=== PATIENT | female | born 1975 | race Caucasian/White ===

== ENCOUNTER → 2017-02-28 | Outpatient (CLI) | payer OTHER ==
[~2017-02-28] MED LIST: MELOXICAM15 MG PO; METOPROLOL SUCC25 MG PO; MONTELUKAST SOD10 MG PO; OMEPRAZOLE40 M1 PO; SPIRIVA RESPIMAT4 G1 INH; ZESTORETIC 20-1 EAC2 PO
--- NOTE | ~2017-02-28 | CR63 ---
[facility] A Service of [facility] & [facility] RADIOLOGY TEXT RESULTS PATIENT: CARTER MARTINEZ LOCATION: [facility] : 73 UNIT #: [id number] AGE: [address]: Juan Jose De Dios SEX: F ORDER DR: [id number] [facility] [address] [place], [place] [address] [id number] O MR#: [id number] Acc #: [id number] NAME: CARTER MARTINEZ : 1975 SEX: F STUDY DATE/TIME: 02/28/2017 8:07 UNIT: [facility] ROOM: STUDY DESCRIPTION: CR Chest 2 View Attending Physician: Juan Jose De Dios M.D. Referring Physician: Juan Jose De Dios M.D. Ordering Physician: Juan Jose De Dios M.D. Primary Care Physician: Bette Connor A.P.R.N. MEDICAL IMAGING REPORT This report is preliminary unless electronic signature is present EXAM Chest 02/28/2017. HISTORY 42-year-old female patient preop clearance for laparoscopic adjustable gastric band placement with possible paraesophageal hernia repair. Morbid obesity. Comparison chest 07/31/2008. FINDINGS PA and lateral chest views show normal cardiac size and configuration. Hilar structures and mediastinal contours are preserved. Bilateral lungs are expanded and clear. Large body habitus noted. IMPRESSION Negative chest. Large body habitus. Dictated by... Servando Andino M.D. THIS IS AN ELECTRONICALLY VERIFIED REPORT Servando Andino M.D. at 02/28/2017 1:33 PM Jay TD: 02/28/2017 12:44 JOB #: [id number] MEDICAL IMAGING REPORT Page 1 of 1 COPY
--- NOTE | ~2017-02-28 | EKG ---
PATIENT: CARTER MARTINEZ UNIT #: [id number] Ventricular Rate: 81 BPM Atrial Rate: 81 BPM P-R Interval: 184 ms QRS Duration: 72 ms Q-T Interval: 368 ms QTC Calculation(Bezet): 427 ms P [place]: 74 degrees Calculated R [place]: 45 degrees Calculated T [place]: 41 degrees Diagnosis Line: Normal sinus rhythm Diagnosis Line: Low voltage QRS Diagnosis Line: Nonspecific ST abnormality Diagnosis Line: Abnormal ECG Diagnosis Line: No previous ECGs available Diagnosis Line: Confirmed by FABIOLA HOLLINS MD ([id number]) on Diagnosis Line: 02/28/2017 2:46:52 PM INTERPRETING MD: GUNJAN FAYE
--- NOTE | ~2017-02-28 | CR97 ---
[facility] A Service of [facility] / [facility] RADIOLOGY TEXT RESULTS PATIENT: CARTER MARTINEZ LOCATION: [facility] : 73 UNIT #: [id number] AGE: [address]: Juan Jose De Dios SEX: F ORDER DR: [id number] [place], [place] [address] [id number] O MR#: [id number] Acc #: [id number] NAME: CARTER MARTINEZ : 1975 SEX: F STUDY DATE/TIME: 02/28/2017 9:02 UNIT: [facility] ROOM: STUDY DESCRIPTION: CR Esophagram Attending Physician: Juan Jose De Dios M.D. Referring Physician: Juan Jose De Dios M.D. Ordering Physician: Juan Jose De Dios M.D. Primary Care Physician: Bette Connor A.P.R.N. MEDICAL IMAGING REPORT This report is preliminary unless electronic signature is present EXAM Single-contrast barium esophagram. INDICATION Preoperative examination prior to laparoscopic gastric band surgery. Patient does have a history of reflux and shortness of breath with activity. TECHNIQUE Patient was administered thin barium and multiple fluoroscopic images were obtained. FINDINGS Thoracic esophagus is of normal caliber. No evidence of stricture or mass lesion. Esophageal motility is within normal limits. No reflux was identified. Patient is noted to have a small hiatal hernia. Total fluoroscopy time was 0.3 minutes and a total of 19 fluoroscopic images were obtained. IMPRESSION Small hiatal hernia, otherwise unremarkable exam. Dictated by... Karina Davalos M.D. THIS IS AN ELECTRONICALLY VERIFIED REPORT Karina Davalos M.D. at 03/03/2017 5:06 PM AFF/jinaw TD: 03/03/2017 13:47 JOB #: [id number] [facility] A Service of [facility] / [facility] RADIOLOGY TEXT RESULTS PATIENT: CARTER MARTINEZ LOCATION: [facility] #: [id number] : 73 UNIT #: [id number] AGE: [address]: Juan Jose De Dios SEX: F ORDER DR: MEDICAL IMAGING REPORT Page 1 of 1 COPY
[2017-02-28 09:53] LABS: HEMATOCRIT 35.8 % (35.0-45.0); MEAN CELL VOLUME 91.1 FL (83-96); MEAN CORPUSCULAR HEMOGLOBIN 30.5 PG (28-34); MEAN CORPUSCULAR HGB CONC 33.4 g/dL (30-36); MEAN PLATELET VOLUME 7.1 FL (6.5-11.5); RED BLOOD COUNT 3.93 X10e (3.90-5.30); RED CELL DISTRIBUTION WIDTH 13.5 % (11.0-15.5); WHITE BLOOD COUNT 12.2 X10e3 (4.0-10.5)
[2017-02-28 10:35] LABS: ALBUMIN SERUM 3.9 g/dL (3.5-5.0); BILIRUBIN,TOTAL 0.2 mg/dL (0.2-2.0); CALCIUM SERUM 9.2 mg/dL (8.4-10.2); CREATININE SERUM 1.2 mg/dL (0.6-1.4); GLOM FILT RATE Estimated 55.3 mL/min (>60); POTASSIUM 4.2 mmol/L (3.5-5.1); PROTEIN TOTAL SERUM 7.3 g/dL (6.0-8.3)
== END | disposition home or self-care (01) ==
LOC: CRAD 07:52 → CAMB 09:00
PROVIDERS: Surgery
DX: Z01.818 Encounter for other preprocedural examination (principal); E66.01 Morbid (severe) obesity due to excess calories; K44.9 Diaphragmatic hernia without obstruction or gangrene; R94.31 Abnormal electrocardiogram [ECG] [EKG]
CPT/HCPCS: 36415; 71020; 74220; 80053; 80061; 84443; 85027; 93005

== ENCOUNTER → 2017-03-12 | Day surgery (SDC) | payer OTHER ==
--- NOTE | ~2017-03-12 | CR7 ---
[facility] A Service of [facility] & [facility] RADIOLOGY TEXT RESULTS PATIENT: CARTER MARTINEZ LOCATION: [facility] : 73 UNIT #: [id number] AGE: [address]: Juan Jose De Dios SEX: F ORDER DR: [id number] [facility] [address]. [place], [place] [address] [id number] O MR#: [id number] Acc #: [id number] NAME: CARTER MARTINEZ : 1975 SEX: F STUDY DATE/TIME: 03/12/2017 11:39 UNIT: [facility] ROOM: STUDY DESCRIPTION: CR Abdomen Single AP View Attending Physician: Juan Jose De Dios M.D. Ordering Physician: Juan Jose De Dios M.D. Primary Care Physician: Bette Connor A.P.R.N. MEDICAL IMAGING REPORT This report is preliminary unless electronic signature is present EXAM Abdomen single view, 03/12/2017 11:39 hours HISTORY Abdominal pain, postop Lap-Band placement today. COMPARISON Esophagram, 02/28/2017 FINDINGS Supine view of the abdomen excludes the right flank and the lower pelvis. There is a Lap-Band present overlying the left aspect of T11-12 oriented at 56 degrees from vertical. Radiopaque tubing courses toward the upper left sacrum where a port is present. Bowel gas pattern is unremarkable. IMPRESSION Postop Lap-Band placement with band overlying the left T11 costovertebral junction oriented at 56 degrees from vertical. Radiopaque tubing courses inferiorly to a port overlying the left upper sacrum. Dictated by... Eli Milan M.D. THIS IS AN ELECTRONICALLY VERIFIED REPORT Eli Milan M.D. at 03/12/2017 8:27 PM Davonte TD: 03/12/2017 16:28 JOB #: [id number] MEDICAL IMAGING REPORT Page 1 of 1 COPY
--- NOTE | ~2017-03-12 | OR ---
Unit #: [id number] #: [id number] Patient: CARTER MARTINEZ [id number] [address] [address] [id number] O MR#: [id number] NAME: CARTER MARTINEZ ROOM: Date of Procedure: 03/12/2017 Admission Date: 03/12/2017 Surgeon: Juan Jose De Dios M.D. : 1975 Attending Physician: Juan Jose De Dios M.D. Primary Care Physician: Bette Connor A.P.R.N. OPERATIVE REPORT PREOPERATIVE DIAGNOSIS Morbid obesity with comorbidities. POSTOPERATIVE DIAGNOSES Morbid obesity with comorbidities with paraesophageal hernia. PROCEDURES PERFORMED 1. Repair of paraesophageal hernia. 2. Laparoscopic adjustable band placement. ANESTHESIA General endotracheal. COMPLICATIONS None. ESTIMATED BLOOD LOSS Minimal. 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 DESCRIPTION OF PROCEDURE After the patient was prepped and draped in usual fashion, an area approximately 10 cm below the xiphoid and just to the left of midline was marked, anesthetized with 0.5% Marcaine, and a 3 cm transverse incision was made. A Visiport was brought forth, and the peritoneal cavity was entered with an 11-mm port. Under direct vision, an epigastric 5-mm port was placed. This was then removed and a liver retractor was placed. Through this, the left lobe of liver was elevated in the usual fashion. Under direct vision, the left upper quadrant medial port site was placed after the left upper quadrant lateral 5 mm port was placed, and the right upper quadrant 5-mm port was placed as well. The lesser omentum was identified. This was opened with cautery. There was a crossing artery superiorly which was clipped doubly, proximally, singly distally, and divided. There was a second branch of this, which was also clipped, doubly proximally, singly distally, and divided. The peritoneum was scored over the top of the GE junction to expose left and right vaughn. In doing so, a paraesophageal hernia was encountered. The contents were swept out with blunt and some electrocautery dissection. The peritoneum was then scored over the left vaughn and the entire area was opened up. With this, there were 2 [id number] stitches of 0 Ethibond was used to Unit #: [id number] #: [id number] Patient: CARTER MARTINEZ close the paraesophageal hernia. This resulted in a good repair. With this, dissecting graspers were brought forth. The fat pad was identified inferiorly from the right vaughn. The peritoneum was entered bluntly here in the right upper quadrant trocar site. The grasper was passed in the retrogastric position up to the angle of His. This was brought out anterior to the left vaughn. The Lap-Band was then placed into the peritoneal cavity. The tubing placed in the jaws of the gastric grasper and this was pulled through in the usual fashion. The tubing was threaded through the locking mechanism. This was cinched down, but not locked. The cardia was then approximated up to the left vaughn with a stitch of 0 Ethibond. The area of the lower cardia upper body was sutured over the top of the band laterally to the portion of stomach wall that was pulled above the band. The band was then cinched down and locked in usual fashion. The black bar was visible. An inferior plicating stitch was then placed near the lesser curvature just below the band. Then 2 more bites were created sequentially over being just superiorly and to left side of the band. This was sutured down in usual fashion. With this, the tubing was brought out through the lower midline trocar site. The liver retractor was removed. There was no bleeding in the operative field. The ports removed. Abdomen desufflated. The hub was attached to the tubing in the usual fashion. An inferior pocket was developed through the lower midline trocar site and the hub was placed within this pocket just on top of the fascia. All wounds were closed with running 4-0 Vicryl sutures, Steri-Strips, and dressings applied. The patient was taken to the recovery room in good condition. Dictated by... Sharmin Nunez/sujey TD: 03/12/2017 12:37 JOB #: [id number] OPERATIVE REPORT Page 1 of 1 X Juan Jose De Dios PROCEDURE OPERATIVE NOTE
== END | disposition home or self-care (01) ==
LOC: CSUR 06:57
DX: E66.01 Morbid (severe) obesity due to excess calories (principal); K44.9 Diaphragmatic hernia without obstruction or gangrene; J45.909 Unspecified asthma, uncomplicated; K21.9 Gastro-esophageal reflux disease without esophagitis; I10 Essential (primary) hypertension; M17.9 Osteoarthritis of knee, unspecified; Z68.41 Body mass index [BMI] 40.0-44.9, adult; Z87.01 Personal history of pneumonia (recurrent); Z79.899 Other long term (current) drug therapy; Z79.1 Long term (current) use of non-steroidal anti-inflammatories (NSAID); Z90.49 Acquired absence of other specified parts of digestive tract; Z98.890 Other specified postprocedural states
CPT/HCPCS: 74000; C1781; J0330; J0690; J1650; J1885; J2250; J2405; J2710; J3010; L8699